=== PATIENT | male | born 1995 | race African-American/Black ===

== ENCOUNTER 2016-07-12 21:55 | Emergency (ER) | payer OTHER ==
--- NOTE | ~2016-07-12 | CT2 ---
[facility] A Service [facility] RADIOLOGY TEXT RESULTS PATIENT: OLIVER GALLO LOCATION: [facility] : 95 UNIT #: [id number] AGE: [address]: Donny Blankenship SEX: M ORDER DR: [id number] [facility]. [place], [place] [address] [id number] MR#: [id number] Acc #: [id number] NAME: OLIVER GALLO : 1995 SEX: M STUDY DATE/TIME: 07/12/2016 22:41 UNIT: [facility] ROOM: STUDY DESCRIPTION: CT Abd and Pelv W Cont Attending Physician: Donny Blankenship P.A.-C. Ordering Physician: Donny Blankenship P.A.-C. MEDICAL IMAGING REPORT This report is preliminary unless electronic signature is present REVISED REPORT SEE ADDENDUM EXAM CT abdomen and pelvis with contrast 07/12/2016 HISTORY 21-year-old male with history of left buttock abscess with drain removal 1 week ago. History of Crohn's disease. COMPARISON None. PROCEDURE 5 mm axial images from the lung bases through the lesser trochanters after intravenous and enteric contrast administration. Sagittal and coronal reformatted images were obtained. This CT examination was performed with one or more of the following radiation dose reduction techniques: automatic exposure control, adjustment of mA and/or kV according to patient size, and iterative reconstruction. FINDINGS ABDOMEN: Limited evaluation of bowel due to the incomplete opacification of small bowel loops and complete lack of opacification of the colon with enteric contrast at the time of image acquisition. The appendix cannot be satisfactorily visualized. No definite pericecal inflammation is seen. No evidence of high-grade large or small bowel obstruction. Lung bases appear free of acute airspace disease. There is some linear scarring in the right middle lobe. The liver, gallbladder, spleen, pancreas, adrenals and left kidney are normal. There is mild right hydronephrosis with renal pelvic dilation, [facility] A Service [facility] RADIOLOGY TEXT RESULTS PATIENT: OLIVER GALLO LOCATION: [facility] : 95 UNIT #: [id number] AGE: [address]: Donny Blankenship PAC SEX: M ORDER DR: tapering at the level of the UPJ, may represent a chronic finding for this patient, as no obstructing abnormality is seen. No free air, free fluid or pathologic adenopathy is identified. PELVIS: There is no drainable fluid collection or abscess seen within the left buttock region. There is a short segment of tubular fluid density with peripheral enhancement in the pelvis slightly to the right of midline. This is favored to represent focally inflamed but decompressed small bowel loop. Other etiologies such as fistula not excluded, but not optimally evaluated due to lack of enteric contrast opacification at that level. There is mild ill-defined fat stranding within the pelvic cavity surrounding this region. The urinary bladder, prostate, rectum are within normal limits. Suspected focal cellulitic change measuring about 1 cm in the right buttock subcutaneous fat. No acute osseous abnormalities are identified. IMPRESSION 1. No drainable fluid collection or abscess is seen in the left buttock region to correspond to the patient's clinical history. There is a 1 cm focal cellulitic type change in the right buttock subcutaneous fat. 2. There is a tubular-shaped fluid density with a peripheral rind of enhancement in the pelvis slightly to the right of midline. I suspect this may represent a focally inflamed small bowel loop which is not opacified with enteric contrast. Other etiologies such as a bowel fistula cannot be completely excluded in this patient with a history of Crohn's disease. Its evaluation is limited due to lack of enteric contrast opacification of bowel at this level. 3. Mild right hydronephrosis, with tapering at the level of the ureteropelvic junction. Findings may represent changes of partial low grade UPJ obstruction. No obstructing mass lesion or stone is seen. 4. The appendix is not visualized. No definite pericecal inflammation is evident. Dictated by... Latesha Marin M.D. THIS IS AN ELECTRONICALLY VERIFIED REPORT Latesha Marin M.D. at 07/18/2016 4:13 PM DEB/roverto TD: 07/13/2016 06:23 [facility] A Service of [facility] RADIOLOGY TEXT RESULTS PATIENT: OLIVER GALLO LOCATION: [place] : 95 UNIT #: [id number] AGE: [address]: Donny Blankenship PAC SEX: M ORDER DR: BORIS #: [id number] ADDENDUM This addendum is being placed after a discussion with the physician assistant corporate controller working at [facility], after acquisition of reports from [facility]. Apparently, the patient had percutaneous placement of a drainage catheter via a right buttock approach into the right pelvic cavity. Therefore, the described cellulitic change in the right buttock subcutaneously likely represented the drain insertion site. There are a couple of foci of low-density within the right gluteus musculature (series 2 image 63 and series 2 image 64), which may represent previous drainage tract site. The previously described tubular fluid collection with enhancement in the right hemipelvis may actually represent a remnant of the previously drained abscess. On today's examination, it measures only 6 mm in thickness x approximately 2 cm in length, and is too small for percutaneous drainage at this time. Dictated by... Latesha Marin M.D. THIS IS AN ELECTRONICALLY VERIFIED REPORT Latesha Marin M.D. at 07/24/2016 7:09 AM DEB/roverto TD: 07/13/2016 07:01 JOB #: [id number] CC: Veena/yanique Please Delete MEDICAL IMAGING REPORT Page 1 of 1 COPY
[2016-07-12 21:40] LABS: BASOPHIL# 0.1 X10e3 (0-0.3); BASOPHIL% 0.7 % (0-2.5); EOSINOPHIL# 0.6 X10e3 (0-0.7); HEMATOCRIT 40.2 % (38.0-50.0); HEMOGLOBIN 13.6 gm/dL (13.0-16.0); LYMPHOCYTE# 2.8 X10e3 (1.0-3.5); LYMPHOCYTE% 29.9 % (17.0-45.0); MEAN CELL VOLUME 77.6 FL (83-96); MEAN CORPUSCULAR HEMOGLOBIN 26.3 PG (28-34); MEAN CORPUSCULAR HGB CONC 33.9 g/dL (30-36); MEAN PLATELET VOLUME 7.1 FL (6.5-11.5); MONOCYTE# 0.7 X10e3 (0-1.0); MONOCYTE% 7.5 % (3.0-12.0); NEUTROPHIL# 5.1 X10e3 (1.5-7.1); NEUTROPHIL% 55.9 % (40-75); PLATELET COUNT 500 X10e3 (140-420); RED BLOOD COUNT 5.18 X10e (3.90-5.60); WHITE BLOOD COUNT 9.2 X10e3 (4.0-10.5)
[2016-07-12 21:48] LABS: DIFF IND NO
[2016-07-12 21:59] LABS: ALBUMIN SERUM 3.9 g/dL (3.5-5.0); BILIRUBIN, DIRECT 0.1 mg/dL (0.0-0.2); BILIRUBIN,INDIRECT 0.2 mg/dL (0.0-0.9); BILIRUBIN,TOTAL 0.3 mg/dL (0.2-2.0); CALCIUM SERUM 9.1 mg/dL (8.4-10.2); GLOM FILT RATE Estimated 124.2 mL/min (>60); POTASSIUM 3.9 mmol/L (3.5-5.1); PROTEIN TOTAL SERUM 8.6 g/dL (6.0-8.3)
[2016-07-12 22:28] LABS: URINE SOURCE CLEAN CATCH
[2016-07-12 22:33] LABS: URINE APPEARANCE CLEAR; URINE BILIRUBIN NEG (NEG); URINE BLOOD NEG (NEG); URINE COLOR YELLOW; URINE GLUCOSE NEG (NEG); URINE KETONE NEG (NEG); URINE LEUKOCYTE ESTERASE TRACE (NEG); URINE NITRATE NEG (NEG); URINE PH 7.5 (5-8); URINE PROTEIN NEG (NEG); URINE SPECIFIC GRAVITY 1.021 (1.003-1.035); URINE UROBILINOGEN 0.2 MG/DL (NEG)
[2016-07-12 22:37] LABS: URBCS1 AUWI 0-2 /[HPF] (0-2); URINE BACTERIA AUWI NEG (NEGATIVE); URINE SQUAMOUS EPITHELIAL CELL NONE SEEN /[HPF]; UWBCS1 AUWI 0-2 (0-5)
[2016-07-12 22:38] LABS: CULTURE INDICATED? NO
== END 2016-07-13 01:10 | disposition home or self-care (01) ==
LOC: CFTX 21:55
PROVIDERS: Physician Assistant
DX: K50.90 Crohn's disease, unspecified, without complications (principal); J45.909 Unspecified asthma, uncomplicated; F17.210 Nicotine dependence, cigarettes, uncomplicated; Z91.010 Allergy to peanuts
CPT/HCPCS: 36415; 74177; 80048; 80076; 81003; 85025; 87040; 87070; 87205; 96361; 96374; 96375; 99284; J2270; J2405; Q9967

== ENCOUNTER 2016-07-31 04:54 | Inpatient (IN) | payer OTHER ==
--- NOTE | ~2016-07-31 | CT105 ---
[facility] A Service of [facility] RADIOLOGY TEXT RESULTS PATIENT: OLIVER GALLO LOCATION: C2A 234-01 : 95 UNIT #: [id number] AGE: [address]: Chacho Jiang MD SEX: M ORDER DR: [id number] [facility] [address] [place], [place] [address] [id number] I MR#: [id number] Acc #: [id number] NAME: OLIVER GALLO : 1995 SEX: M STUDY DATE/TIME: 07/31/2016 10:12 UNIT: C2A ROOM: 234 STUDY DESCRIPTION: CT Pelvis W Cont Attending Physician: Chacho Jiang Jr., M.D. Ordering Physician: Kam Dorman M.D. Primary Care Physician: No Primary Care Physician MEDICAL IMAGING REPORT This report is preliminary unless electronic signature is present EXAM CT pelvis, 07/31/2016. INDICATIONS Right buttock and thigh pain. History of right abscess drained 4 weeks ago. History of Crohn disease. TECHNIQUE Axial images were obtained through the pelvis following IV contrast administration. Multiplanar reformats were obtained. This CT exam was performed with one or more of the following radiation dose reduction techniques: automatic exposure control, adjustment of mA and/or kV according to patient size, and iterative reconstruction. COMPARISON Comparison made with 07/12/2016. FINDINGS This exam is degraded by the lack of oral contrast. There is an irregular abscess on the right side posteriorly that involves the gluteal musculature and extends into the piriformis muscle. It measures roughly 4.1 x 3.9 cm. This may or may not be contiguous with the second smaller irregular abscess that extends up into the right posterior pelvis behind the psoas muscle and iliac vasculature. The smaller abscess measures about 8 mm in depth. It is difficult to measure craniocaudally due to its size and orientation. There is an additional irregular abscess in the rectovesical space, which measures 2.4 x 2.1 cm and extends over a craniocaudal length of roughly 3.5 cm. There is fairly pronounced low attenuation change in the right gluteus cherrie muscle, which may reflect diffuse inflammation/infection. In the left hemipelvis, there is a fluid-filled bowel loop versus an additional abscess. Bowel loop is favored. There is some generalized thickening of the rectum suggesting STS. [facility] A Service of [facility] RADIOLOGY TEXT RESULTS PATIENT: OLIVER GALLO LOCATION: [facility] 234-01 : 95 UNIT #: [id number] AGE: [address]: Chacho Jiang MD SEX: M ORDER DR: proctitis. There is a trace amount of dependent free fluid in the presacral space. IMPRESSION 1. Abnormal exam that is limited by the lack of oral contrast. 2. There is an irregular abscess in the right side gluteus musculature which extends into the right piriformis muscle. More superficial to this, there is a large area of low attenuation in the right side gluteus cherrie muscle which may reflect infection/inflammation. Well-defined abscess in this location is not seen. 3. There is an additional poorly defined irregular abscess that extends in the right posterolateral pelvis from the level of the larger abscess mentioned above, up behind the psoas and iliac vasculature. 4. There is an additional abscess in the rectovesical space. This is in direct contact with the rectum. It extends up into the right within the pelvis. 5. There is a potential additional abscess versus potentially a fluid filled bowel loop in the left hemipelvis. Oral contrast would be of benefit in further evaluating this potential abscess. 6. Generalized fat stranding in the pararectal fat with thickening of the rectum suggesting some associated proctitis. 7. The intrapelvic portions of these abscesses are likely not amenable to percutaneous drainage. Dictated by... Kam Benito Jr., M.D. THIS IS AN ELECTRONICALLY VERIFIED REPORT Kam Benito Jr., M.D. at 07/31/2016 4:27 PM SHERICE/trudy TD: 07/31/2016 14:30 JOB #: [id number] MEDICAL IMAGING REPORT Page 1 of 1 COPY
--- NOTE | ~2016-07-31 | DS ---
Unit #: [id number] #: [id number] Patient: OLIVER GALLO [id number] [facility]. [place], [place] [address] [id number] I MR#: [id number] NAME: OLIVER GALLO ROOM: 234 Age: 21 Sex: M Admission Date: 07/31/2016 : 1995 Discharge Date: 08/03/2016 Attending Physician: Chacho Jiang Jr., M.D. Primary Care Physician: No Primary Care Physician DISCHARGE SUMMARY CONSULTATIONS Dr. Weber with GI. PROCEDURE PERFORMED On 08/01/2016 he underwent incision and drainage of deep gluteal abscess that extended to the pelvic area. ADMITTING DIAGNOSIS Right gluteal abscess. SECONDARY DIAGNOSIS Crohn disease. DISCHARGE DIAGNOSIS Right gluteal abscess. BRIEF HOSPITAL COURSE This is a 21-year-old gentleman who was admitted with a gluteal abscess. 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 He had a recent pelvic abscess that was percutaneously drained through the right gluteal region. This, unfortunately, recurred after the drain was removed. He was started on antibiotics and underwent incision and drainage. He required a couple days in the hospital postoperatively for pain control and IV antibiotics but did feel much better. Boyfriend was comfortable doing the dressing changes prior to discharge. DISPOSITION Discharged to home. FOLLOW-UP He is to follow up with me in the office in 3 weeks. He is also to follow up with Dr. Weber to arrange long-term followup for his Crohn disease. MEDICATIONS He was given a script for Augmentin, iodoform gauze and pain medication. Dictated by... Thee Velásquez III, M.D. VCL/ayad Unit #: [id number] #: [id number] Patient: OLIVER GALLO TD: 08/04/2016 08:43 JOB #: [id number] DISCHARGE SUMMARY Page 1 of 1 X Thee Velásquez III, MD DISCHARGE SUMMARY
--- NOTE | ~2016-07-31 | OR ---
Unit #: [id number] #: [id number] Patient: OLIVER GALLO [id number] [place], [place] [address] [id number] MR#: [id number] NAME: OLIVER GALLO ROOM: 234 Date of Procedure: 08/01/2016 Admission Date: 07/31/2016 Surgeon: Thee Velásquez III, M.D. : 1995 Attending Physician: Chacho Jiang Jr., M.D. Primary Care Physician: Primary Care Physician No OPERATIVE REPORT PREOPERATIVE DIAGNOSIS Right deep gluteal abscess. POSTOPERATIVE DIAGNOSIS Right deep gluteal abscess. PROCEDURE PERFORMED Incision and drainage of right gluteal abscess extending into the pelvic area. ANESTHESIA General. SPECIMEN Cultures sent to Microbiology. COMPLICATIONS None apparent. 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 This was percutaneously drained and since removal of the drain, he has had a resultant abscess form in the deep gluteal space as well as a pelvic area. He is here today for incision and drainage. DESCRIPTION OF PROCEDURE After consent was obtained, the patient was brought to the operating room and placed in the supine position. General anesthetic was administered. He was then placed in the left lateral decubitus position. We prepped and draped the right gluteal region in standard surgical fashion. I made a transverse incision overlying the area surrounding where the exit site of the previous drain site was. I was able to evacuate a purulent pocket. Because of the CT scan showed a deeper communicating purulent pocket, I used a hemostat to probe that and I was able to create a tract that was approximately 9 cm deep and densely went into the pelvic area. This was irrigated and had good hemostasis. I packed the wound with 0.5 inch iodoform gauze. He tolerated the procedure without any problems and returned to the recovery room in stable condition. Dictated by... Unit #: [id number] #: [id number] Patient: OLIVER GALLO Thee Velásquez III, M.D. VCL/ruy TD: 08/02/2016 16:33 JOB #: [id number] OPERATIVE REPORT Page 1 of 1 X Thee Velásquez III, MD PROCEDURE OPERATIVE NOTE
--- NOTE | ~2016-07-31 | CO ---
Unit #: [id number] #: [id number] Patient: OLIVER GALLO [id number] [place], [place] [address] [id number] I MR#: [id number] NAME: OLIVER GALLO ROOM: 234 Age: 21 Sex: M Admission Date: 07/31/2016 : 1995 Attending Physician: Chacho Jiang Jr., M.D. Consultation Date: 07/31/2016 CONSULTATION REPORT DICTATED FOR Tu Weber M.D. REASON FOR CONSULTATION Crohn disease. HISTORY OF PRESENT ILLNESS The patient is a 21-year-old male with history of Crohn disease diagnosed 5 or 6 years ago. The patient initially was treated with Remicade for 7 or 8 months that subsequently developed antibodies to Remicade, and therefore, was discontinued. He subsequently stayed on mesalamine for a few years. The patient had repeat colonoscopy in 2014 due to flare of symptoms. He subsequently started on Humira, but was not able to continue due to insurance purpose. He has not been on any medications since 2014. Previous workup was done in [place], [place]. The patient was evaluated at [facility] 5 or 6 weeks ago for abdominal pain and was found to have pelvic abscess. He subsequently had drainage tube placed in right buttock and removed. Since removal of drainage tube, the patient has been having progressively worsening right buttock pain. Pain has been worse over the past 3 days to the point, where the patient was not able to go to work. He reports chills, but no fever. No significant abdominal pain. No nausea, vomiting. No diarrhea or overt gastrointestinal blood loss. His appetite has been fair. He denies any significant weight loss. PAST MEDICAL HISTORY Crohn disease and asthma. PAST SURGICAL HISTORY Drainage tube placed in the right buttock 5 or 6 weeks ago. EGD and colonoscopy in 2014 in [place], [place]. ALLERGIES No known drug allergies. HOME MEDICATIONS Currently, not on any medication. FAMILY HISTORY None for colon or pancreatic cancer or liver disease. SOCIAL HISTORY The patient lives with his significant other. He smokes half a pack of Unit #: [id number] #: [id number] Patient: OLIVER GALLO cigarettes a day. Uses marijuana on a daily basis. Denies alcohol. REVIEW OF SYSTEM A 12-point review of system was completed and is negative except for positive findings, as noted in HPI. PHYSICAL EXAMINATION GENERAL: The patient is awake, alert, and oriented, appears uncomfortable in pain. VITAL SIGNS: Stable with temperature 98.6, blood pressure 128/57, heart rate 81, respirations 16. HEENT: No pallor. No scleral icterus. No lymphadenopathy. No peripheral edema. CHEST: Clear to auscultation bilaterally. CARDIAC: Normal regular rate and rhythm. ABDOMEN: Soft, nontender. Liver and spleen not palpable. Bowel sounds are normal. The patient has a large moderately tender mass to right buttock. No redness. No drainage noted. DIAGNOSTIC STUDIES IMAGING STUDIES: CT of pelvis show an irregular abscess in right thigh and gluteus musculature. Two smaller abscesses also noted in the pelvic area. There is generalized fat stranding in the perirectal fat with thickening of the rectum suggesting of some associated proctitis. LABORATORY RESULTS: BMP was normal. CBC notable for WBC 12.6, hemoglobin 12, MCV 77.8, platelets 267. CLINICAL IMPRESSION AND PLAN The patient with background history of Crohn disease. Has not been on medications for almost 2 years. The patient now has recurrent abscesses in the pelvic area possibly complication from Crohn disease. Discussed with Dr. Jiang. The patient will undergo incision and drainage tomorrow. The patient will need repeat colonoscopy for re-evaluation of Crohn disease. We will plan for colonoscopy in a day or two when the patient is able to tolerate prep as he has been in a lot of pain at this time. We will also try to obtain previous esophagogastroduodenoscopy and colonoscopy reports from [facility] in [place], [place]. The patient has been discussed with Dr. Weber. Further recommendations to follow. Thank you very much for asking us to see this patient. We appreciate the consult. Dictated by... KIN Beltre/ruy TD: 08/01/2016 03:14 JOB #: [id number] Unit #: [id number] #: [id number] Patient: OLIVER GALLO CONSULTATION REPORT Page 1 of 1 X X CONSULTATION REPORT
--- NOTE | ~2016-07-31 | CO ---
Unit #: [id number] #: [id number] Patient: OLIVER GALLO [id number] [place], [place] [address] [id number] I MR#: [id number] NAME: OLIVER GALLO ROOM: 234 Age: 21 Sex: M Admission Date: 07/31/2016 : 1995 Attending Physician: Chacho Jiang Jr., M.D. Consultation Date: 07/31/2016 CONSULTATION REPORT PRIMARY CARE PHYSICIAN None. REASON FOR CONSULTATION Gluteal abscess, prior history of Crohn disease. This is an addendum to the GI consult already dictated by Dr. Tia Broussard's nurse practitioner. HISTORY OF PRESENT ILLNESS The patient is a 21-year-old young gentleman who was diagnosed with Crohn disease at least 7 years ago in [place]. He was subsequently on Remicade for some time and mesalamine. His most latest evaluation was done in [place], [place] and taken to hospital and the records in the hospital showed that he had a normal upper endoscopy and a colonoscopy. The patient had recently presented about 6 weeks ago in [facility] with abdominal pain, pelvic abscess, which was removed by drainage and treated. He denies any history of abdominal pain, nausea, vomiting or diarrhea or overt GI blood loss. CLINICAL IMPRESSION Although the patient has a history of Crohn disease and recurrent abscesses, It is not clear whether there is any fistula or continuity of the abscesses to the bowel. There is some associated proctitis. The patient does require a complete evaluation of the GI tract. However, this is best left after he is pain free or after his pain is controlled after drainage of his abscess. We will try and also obtain records from [facility] about the most recent evaluation, especially the CT scans. Thank you very much for asking me to see this pleasant gentleman. Dictated by.Angelo. Holly Ramirez/ruy TD: 08/02/2016 23:45 JOB #: [id number] CC: Chacho Jiang Jr, M.D. Unit #: [id number] #: [id number] Patient: OLIVER GALLO CONSULTATION REPORT Page 1 of 1 X uT Weber MD CONSULTATION REPORT
[2016-07-31 08:14] LABS: BASOPHIL% 0.2 % (0-2.5); EOSINOPHIL# 0.2 X10e3 (0-0.7); EOSINOPHIL% 1.9 % (0.0-7.0); HEMATOCRIT 37.2 % (38.0-50.0); LYMPHOCYTE# 1.5 X10e3 (1.0-3.5); LYMPHOCYTE% 11.7 % (17.0-45.0); MEAN CELL VOLUME 77.8 FL (83-96); MEAN CORPUSCULAR HEMOGLOBIN 25.1 PG (28-34); MEAN CORPUSCULAR HGB CONC 32.2 g/dL (30-36); MEAN PLATELET VOLUME 7.2 FL (6.5-11.5); MONOCYTE# 1.1 X10e3 (0-1.0); MONOCYTE% 8.9 % (3.0-12.0); NEUTROPHIL# 9.8 X10e3 (1.5-7.1); NEUTROPHIL% 77.3 % (40-75); PLATELET COUNT 267 X10e3 (140-420); RED BLOOD COUNT 4.78 X10e (3.90-5.60); RED CELL DISTRIBUTION WIDTH 15.1 % (11.0-15.5); WHITE BLOOD COUNT 12.6 X10e3 (4.0-10.5)
[2016-07-31 08:16] LABS: DIFF IND NO
[2016-07-31 08:48] LABS: CALCIUM SERUM 9.3 mg/dL (8.4-10.2); CREATININE SERUM 0.5 mg/dL (0.6-1.4); GLOM FILT RATE Estimated 179.6 mL/min (>60); POTASSIUM 3.7 mmol/L (3.5-5.1)
[2016-07-31] MEDS ORDERED: NO MEDICATIONS (14:09)
[2016-08-01 07:02] LABS: HEMATOCRIT 35.9 % (38.0-50.0); HEMOGLOBIN 11.6 gm/dL (13.0-16.0); MEAN CELL VOLUME 77.1 FL (83-96); MEAN CORPUSCULAR HEMOGLOBIN 24.9 PG (28-34); MEAN CORPUSCULAR HGB CONC 32.3 g/dL (30-36); MEAN PLATELET VOLUME 7.2 FL (6.5-11.5); RED BLOOD COUNT 4.66 X10e (3.90-5.60); RED CELL DISTRIBUTION WIDTH 15.3 % (11.0-15.5); WHITE BLOOD COUNT 12.5 X10e3 (4.0-10.5)
[2016-08-01 08:02] LABS: BLOOD UREA NITROGEN <5 mg/dL (9-23); CALCIUM SERUM 8.7 mg/dL (8.4-10.2); CARBON DIOXIDE 28 mmol/L (22-31); CHLORIDE 97 mmol/L (100-111); CREATININE SERUM 0.5 mg/dL (0.6-1.4); GLOM FILT RATE Estimated 179.6 mL/min (>60); GLUCOSE FASTING 96 mg/dL (70-110); POTASSIUM 3.6 mmol/L (3.5-5.1); SODIUM 133 mmol/L (135-145)
[2016-08-02 06:16] LABS: HEMATOCRIT 33.4 % (38.0-50.0); HEMOGLOBIN 10.6 gm/dL (13.0-16.0); MEAN CELL VOLUME 78.3 FL (83-96); MEAN CORPUSCULAR HGB CONC 31.9 g/dL (30-36); RED BLOOD COUNT 4.26 X10e (3.90-5.60); WHITE BLOOD COUNT 9.3 X10e3 (4.0-10.5)
[2016-08-03] MEDS ORDERED: AUGMENTIN PO (08:07)
[2016-08-03] MEDS ORDERED: HYDROCODON-ACE1 EA14 PO (08:09)
== END 2016-08-03 08:38 | disposition home or self-care (01) | DRG 603 ==
LOC: CED 04:54 → C2A 11:55 → CEDOF 11:55 → C2A 12:05 → CED 12:05 → CEDOF 12:05 → C2A 13:32 → CEDOF 13:32 → C2A 08-03 08:38
PROVIDERS: Emergency Medicine; Surgery
PROC: 0Y900ZZ Drainage of Right Buttock, Open Approach (ICD-10-PCS; principal; 2016-07-31)
DX: L02.31 Cutaneous abscess of buttock (principal); K50.90 Crohn's disease, unspecified, without complications; F17.210 Nicotine dependence, cigarettes, uncomplicated; Z91.010 Allergy to peanuts
CPT/HCPCS: 36415; 72193; 73701; 80048; 85025; 85027; 87070; 87075; 87205; 94640; 94760; 96361; 96374; 99285; J1170; J2250; J2270; J2543; J2550; J3010; Q9967